=== PATIENT | male | born 1965 | race African-American/Black ===

== ENCOUNTER 2020-09-22 21:15 | Emergency (ER) | payer MEDICAID, SELFPAY ==
[~2020-09-22] VITALS: Ht 182.9 cm; Wt 88.0 kg
[2020-09-22 21:20] VITALS: BP 136/96
--- NOTE | 2020-09-22 21:40 | NUR ---
pt wandering the halls. states he has important phone call to make.
--- NOTE | 2020-09-22 21:53 | NUR ---
pt to us
[2020-09-22] MEDS ORDERED: METHOCARBAMOL 750 MG TABLET PO ONE (22:00)
--- NOTE | 2020-09-22 22:00 | NUR ---
BEDSIDE REPORT FROM JENNIFER VENEGAS
[2020-09-22] MEDS ORDERED: METHOCARBAMOL 750 MG TABLET ONE (22:25)
--- NOTE | 2020-09-22 22:46 | NUR ---
Patient given discharge instructions and they have confirmed that they understand the instructions. Patient ambulatory with steady gait. Pt refused d/c vitals.
== END 2020-09-22 22:47 | disposition home or self-care (01) ==
LOC: ED 22:15
DX: S29.012A Strain of muscle and tendon of back wall of thorax, initial encounter (principal); R60.0 Localized edema; R25.2 Cramp and spasm; X58.XXXA Exposure to other specified factors, initial encounter; Y93.89 Activity, other specified; Y92.89 Other specified places as the place of occurrence of the external cause; Y99.8 Other external cause status
CPT/HCPCS: 99284

== ENCOUNTER 2020-11-09 16:51 | Emergency (ER) | payer SELFPAY ==
--- NOTE | 2020-11-09 17:01 | NUR ---
NIL X1
--- NOTE | 2020-11-09 17:08 | NUR ---
LEFT WITHOUT BEING SEEN PER REGISTRATION/SECURITY. REGULATORY SCIENTIST MADE AWARE
== END 2020-11-09 17:09 | disposition left against medical advice (07) ==
LOC: ED 17:00
DX: M54.9 Dorsalgia, unspecified (principal); Z53.21 Procedure and treatment not carried out due to patient leaving prior to being seen by health care provider